=== PATIENT | male | born 1985 | race Two or more races ===

== ENCOUNTER 2021-12-26 17:49 | Emergency (ER) | payer MEDICAID, OTHER ==
[~2021-12-26] VITALS: Ht 157.5 cm; Wt 42.7 kg
[2021-12-26 18:00] VITALS: BP 123/74
[2021-12-26] MEDS ORDERED: TETANUS-DIPTH-ACEL PERTUSSIS 0.5ML SYR Tdap IM ONE (19:15)
[2021-12-26] MEDS ORDERED: KETOROLAC TROMETH 60MG/2ML VIAL IM ONE (19:45)
[2021-12-26] MEDS ORDERED: CEPH-510 PO (20:11)
== END 2021-12-26 20:19 | disposition home or self-care (01) ==
LOC: ER 17:49
DX: S01.512A Laceration without foreign body of oral cavity, initial encounter (principal); F17.210 Nicotine dependence, cigarettes, uncomplicated; F12.10 Cannabis abuse, uncomplicated; Y04.2XXA Assault by strike against or bumped into by another person, initial encounter; Y93.89 Activity, other specified; Y92.89 Other specified places as the place of occurrence of the external cause; Y99.8 Other external cause status
CPT/HCPCS: 12011; 90471; 90715; 96372; 99284; J1885

== ENCOUNTER 2022-03-21 14:37 | Emergency (ER) | payer MEDICAID ==
[~2022-03-21] VITALS: Ht 157.5 cm; Wt 60.0 kg
[~2022-03-21 14:37] MED LIST: CEPH-510 PO
[2022-03-21] MEDS ORDERED: ONDA-144 PO (17:47)
[2022-03-21 19:03] VITALS: BP 130/76
== END 2022-03-21 19:04 | disposition home or self-care (01) ==
LOC: ER 14:37
DX: U07.1 COVID-19 (principal); B34.9 Viral infection, unspecified
CPT/HCPCS: 36415; 71045; 87426

== ENCOUNTER 2024-07-17 22:15 | Emergency (ER) | payer MEDICAID ==
[~2024-07-17] VITALS: Ht 157.5 cm; Wt 48.6 kg
[~2024-07-17 22:15] MED LIST changes: +ONDA-144 PO
[2024-07-17 22:37] VITALS: BP 121/68; RESP 16
--- NOTE | 2024-07-17 23:19 | ED.PDOC ---
General HPI Comments 38-year-old male presents to ER with left-sided testicular pain x3 days. Patient reports that he started experiencing pain/swelling to left testicle three days ago. Denies any trauma/injury. He rates his current pain an 8/10 to left testicle without radiation. Denies use of medications for current symptoms. Patient presents to ER ambulatory on arrival, with steady gait, in no distress. Denies fever, body aches, chills, exposure to STD, abdominal/pelvic pain, back/flank pain, changes in urination or any further symptoms/complaints Chief Complaint: Testicle Pain Time Seen by MD: 22:23 Primary Care Provider: PRAVEEN Reviewed notes: Nurses Notes, Medications, Allergies Allergies: Coded Allergies: NO KNOWN ALLERGIES (Unverified , 12/26/21) Home Meds Active Scripts Ibuprofen (Ibuprofen) 800 Mg Tab, 1 TAB PO TID PRN, #30 TAB 0 Refills Prov:JENNIFER TIDWELL 07/18/24 Doxycycline (Monohydrate) (Doxycycline) 100 Mg Cap, 100 MG PO BID for 10 Days, #20 CAP 0 Refills Prov:JENNIFER TIDWELL 07/18/24 Ondansetron (Zofran) 4 Mg Tab, 4 MG PO Q8HPRN PRN for 3 Days, #9 TAB Prov:MICK CAROLINA MD 03/21/22 Cephalexin ( Keflex 500) 500 Mg Cap, 1 CAP PO QID for 5 Days, #20 CAP 0 Refills Prov:CADE RODAS 12/26/21 Information Source: Patient Mode of Arrival: Ambulatory Past Medical History PAST MEDICAL HISTORY: Denies Surgical History: Denies all surgeries Family History Family History: Unknown Social History Smoker: Non-Smoker Alcohol: Denies ETOH Use Drugs: Marijuana Lives In: Home Constitutional: denies: chills, diaphoresis, fatigue, fever, malaise, sweats, weakness, others EENTM: denies: blurred vision, double vision, ear bleeding, ear discharge, ear drainage, ear pain, ear ringing, eye pain, eye redness, hearing loss, mouth pain, mouth swelling, nasal discharge, nose bleeding, nose congestion, nose pain, photophobia, tearing, throat pain, throat swelling, voice changes, others Respiratory: denies: cough, hemoptysis, orthopnea, SOB at rest, shortness of b reath, SOB with excertion, stridor, wheezing, others Cardiovascular: denies: chest pain, dizzy spells, diaphoresis, Dyspnea on exertion, edema, irregular heart beat, left arm pain, lightheadedness, palpitations, PND, syncope, others Gastrointestinal: denies: abdomen distended, abdominal pain, blood streaked bowels, constipated, diarrhea, dysphagia, difficulty swallowing, hematemesis, melena, nausea, poor appetite, poor fluid intake, rectal bleeding, rectal pain, vomiting, others Genitourinary: reports: others ( STATED IN HPI) Neurological: denies: dizziness, fainting, headache, left sided numbness, left sided weakness, numbness, paresthesia, pre-existing deficit, right sided numbness, right sided weakness, seizure, speech problems, tingling, tremors, weakness, others Musculoskeletal: denies: back pain, gout, joint pain, joint swelling, muscle pain, muscle stiffness, neck pain, others Integumetry: reports: others ( STATED IN HPI) Allergic/Immunocompromised: denies: Difficulty Healing, Frequent Infections, Hives, Itching, others Hematologic/Lymphatic: denies: anemia, blood clots, easy bleeding, easy bruising, swollen glands, others Endocrine: denies: excessive hunger, excessive sweating, excessive thirst, excessive urination, flushing, intolerance to cold, intolerance to heat, unexplained weight gain, unexplained weight loss, others Psychiatric: denies: anxiety, bipolar disorder, depression, hopeless, panic disorder, schizophrenia, sleepless, suicidal, others Physical Exam General Appearance: No Apparent Distress HEENT: PERRL/EOMI Neck: Full Range of Motion, Non-Tender, Normal Respiratory: Chest Non-Tender, Lungs Clear, No Accessory Muscle Use, No Respiratory Distress, Normal Breath Sounds Cardiovascular: No Murmur, No Gallop, Regular Rate/Rhythm Breast Exam: Deferred Gastrointestinal: Non Tender, No Pulsatile Mass, Soft Genitalia: Other (TTP/MODERATE SWELLING NOTED TO LEFT TESTICLE. POSITIVE PREHN SIGN ON LEFT. POSITIVE CREMASTERIC REFLEX NOTED BILATERALLY. NO FURTHER SKIN CHANGES NOTED. REMAINDER OF GENITALIA EXAMINATION-UNREMARKABLE) Pelvic: Deferred Rectal: Deferred Extremities: Normal capillary refill, Normal range of motion Neurologic: Alert, reliability technologist II-XII nml as Tested, No Motor Deficits, Normal Affect, Normal Mood, No Sensory Deficits Cerebellar Function: Normal Reflexes: Normal Skin: Dry, Normal Color, Warm Lymphatic: No Adenopathy Was a procedure done? Was a procedure done?: No Sedation Sedation?: No Differential Diagnosis Kidney stone (Female): N/A Other Differential Diagnosis TESTICULAR ABSCESS, SEPSIS, TESTICULAR TORSION, TESTICULAR TRAUMA X-Ray, Labs, Meds, VS Vital Signs Date Time Temp Pulse Resp B/P (MAP) Pulse Ox O2 Delivery O2 Flow Rate FiO2 07/18/24 00:52 85 98 07/17/24 22:37 98.9 95 16 121/68 (85) 100 Lab Test 07/18/24 00:22 07/17/24 23:56 07/17/24 23:33 Range/Units Lactic Acid Level 0.9 0.4-2.0 mmol/L Urine Color Yellow Yellow Urine Clarity Turbid H Clear Urine pH 6.0 5.0-9.0 Urine Specific [place] 1.036 H 1.001-1.035 Urine Protein 1+ H Negative Urine Ketones 1+ H Negative Urine Blood 2+ H Negative /uL Urine Nitrite Negative Negative Urine Bilirubin Negative Negative Urine Urobilinogen 3 H Negative mg/dL Urine Leukocyte Esterase 3+ Negative /uL Urine RBC 42 0 - 3 /hpf Urine Microscopic WBC 249 H 0-3 /HPF Urine Squamous Epithelial Cells Few <5 /hpf Urine Bacteria Few H None Seen /hpf Urine Mucus Few None Seen Urine Glucose Normal Normal mg/dL White Blood Count 17.2 H 4.4-10.8 10^3/uL Red Blood Count 4.43 L 4.5-5.90 10^6/uL Hemoglobin 14.9 13.5-17.5 g/dL Hematocrit 42.9 41.0-53.0 % Mean Corpuscular Volume 96.9 80.0-100.0 fL Mean Corpuscular Hemoglobin 33.6 H 28.0-32.0 pg Mean Corpuscular Hemoglobin Concent 34.7 32.0-36.0 g/dL Red Cell Distribution Width 13.2 11.8-14.3 % Platelet Count 286 140-450 10^3/uL Mean Platelet Volume 7.8 6.9-10.8 fL Neutrophils (%) (Auto) 78.5 37.0-80.0 % Lymphocytes (%) (Auto) 9.8 L 10.0-50.0 % Monocytes (%) (Auto) 10.7 0.0-12.0 % Eosinophils (%) (Auto) 0.9 0.0-7.0 % Basophils (%) (Auto) 0.1 0.0-2.0 % Neutrophils # (Auto) 13.5 H 1.6-8.6 10 ^3/uL Lymphocytes # (Auto) 1.7 0.4-5.4 10 ^3/uL Monocytes # (Auto) 1.8 H 0-1.3 10 ^3/uL Eosinophils # (Auto) 0.1 0-0.8 10 ^3/uL Basophils # (Auto) 0 0-0.2 10 ^3/uL Nucleated Red Blood Cells 0.0 % Sodium Level 137 136-145 mmol/L Potassium Level 3.9 3.5-5.1 mmol/L Chloride Level 104 98-107 mmol/L Carbon Dioxide Level 26 20-31 mmol/L Anion Gap 7 5-15 Blood Urea Nitrogen 18 9-23 mg/dL Creatinine 0.83 0.700-1.30 mg/dL Glomerular Filtration Rate Calc 116 >90 mL/min BUN/Creatinine Ratio 21.7 H 10.0-20.0 Serum Glucose 96 74-106 mg/dL Calcium Level 9.9 8.7-10.4 mg/dL Current Medications Medications (Trade) Dose Ordered Sig/Arjun Route Start Time Stop Time Status Last Admin Ceftriaxone Sodium (Rocephin) 1,000 mg ONCE ONCE IM 07/18/24 00:15 07/18/24 00:16 DC 07/18/24 00:17 Ibuprofen (Motrin Tablet) 800 mg ONCE ONCE PO 07/18/24 00:15 07/18/24 00:16 DC 07/18/24 00:19 PATIENT: DANIELLE SINHAROSARIOT: [id number] UNIT: [id number] : 1985 LOC: ER ROOM / BED: / AGE / SEX: 38 / M ADM STATUS: REG ER SERVICE [id number] ORDERING PHYSICIAN: JENNIFER TIDWELL PROCEDURE(s): TESUS - TESTICULAR ULTRASOUND REASON: left testicular swelling/pain r/o torsion ORDER NUMBER(s): [id number], ACCESSION NUMBER(s): [id number] SCROTAL ULTRASOUND CLINICAL HISTORY: left testicular swelling/pain r/o torsion COMPARISON: None TECHNIQUE: Grayscale, color-flow and spectral Doppler ultrasound of the scrotum and its contents was performed. FINDINGS: Right testis: Measures 4.0 x 2.2 x 2.6 cm. Tiny, approximately 1 mm calcification seen in the right testicular parenchyma. No other discrete, sizable parenchymal lesions identified. Normal blood flow on spectral analysis. Left testis: Measures 3.5 x 2.1 x 2.7 cm. No discrete, sizable parenchymal le sions identified. Normal blood flow on spectral analysis. Epididymides: Left epididymis appears enlarged and hypervascular. Hydrocele: Small left hydrocele noted. Other: Negative. IMPRESSION: Enlarged, hypervascular left epididymis which can be seen with epididymitis. Small left hydrocele may be reactive. No sonographic evidence of testicular torsion at this time. ATED BY: HOWIE KILLIAN MD DICTATED DATE/TIME: 07/17/242356 SIGNED BY: HOWIE KILLIAN MD SIGNED DATE/TIME: 07/17/242356 CC: CBC REVIEWED-WBC 17.2 BMP REVIEWED WITHOUT ANY SIGNIFICANT ABNORMALITIES LACTIC ACID REVIEWED - NORMAL URINALYSIS REVIEWED-URINE LEUKOCYTE ESTERASE 2+, URINE BLOOD 2+, URINE NITRITES NEGATIVE TESTICULAR ULTRASOUND REVIEWED ROCEPHIN 1 G IM ORDERED IBUPROFEN 800 MG P.O. ORDERED ADVISED ON REST/NO STRENUOUS ACTIVITY AND ELEVATION SAFE SEX PRACTICES DISCUSSED AND ADVISED AND WAS ADVISED TO REFRAIN FROM SEXUAL INTERCOURSE UNTIL SYMPTOMS COMPLETELY RESOLVE PATIENT HAD IMPROVEMENT IN SYMPTOMS, VITALS STABLE AND NONTOXIC APPEARING/IN NO DISTRESS PRIOR TO DISCHARGE PATIENT PROVIDED COPY OF TESTICULAR ULTRASOUND REPORT ADVISED TO FOLLOW UP WITH PCP AND UROLOGY IN 1-2 DAYS PATIENT VERBALIZED UNDERSTANDING AND AGREEABLE WITH CURRENT PLAN OF CARE ADVISED TO RETURN TO ER IMMEDIATELY IF SYMPTOMS WORSEN Images Reviewed?: Images reviewed and evaluated by me Time of 1ST Reevaluation: 23:12 Reevaluation 1ST: N/A Patient Education/Counseling: Diagnosis, Treatment, Prognosis, Need For Follow Up Family Education/Counseling: No Family Present Departure 1 Departure Time of Disposition: 00:02 Impression: Primary Impression: Epididymitis, left Additional Impressions: UTI (urinary tract infection) Qualified Codes: N30.01 - Acute cystitis with hematuria Hydrocele Qualified Codes: N43.3 - Hydrocele, unspecified Disposition: HOME / SELF CARE / HOMELESS Condition: Stable e-Prescriptions Ibuprofen (Ibuprofen) 800 Mg Tab 1 TAB PO TID PRN, #30 TAB 0 Refills Prov: JENNIEFR TIDWELL 07/18/24 Doxycycline (Monohydrate) (Doxycycline) 100 Mg Cap 100 MG PO BID for 10 Days, #20 CAP 0 Refills Prov: JENNIFER TIDWELL 07/18/24 Discharged With: Self Critical Care Note Critical Care Time?: No Stability Stability form required: No Heart Score Heart Score: Heart Score Response (Comments) Value History N/A 0 EKG N/A 0 Age N/A 0 Risk Factors N/A 0 Troponin N/A 0 Total 0 JENNIFER TIDWELL Jul 17, 2024 23:19
[2024-07-17 23:42] LABS: Basophils # (auto) 0 10 ^3/uL (0-0.2); Basophils % (auto) 0.1 % (0.0-2.0); Eosinophils # (auto) 0.1 10 ^3/uL (0-0.8); Eosinophils % (auto) 0.9 % (0.0-7.0); Hematocrit 42.9 % (41.0-53.0); Hemoglobin 14.9 g/dL (13.5-17.5); Lymphocytes # (auto) 1.7 10 ^3/uL (0.4-5.4); Lymphocytes % (auto) 9.8 % (10.0-50.0); Mean Corpuscular Hemoglobin 33.6 pg (28.0-32.0); Mean Corpuscular Hgb Conc. 34.7 g/dL (32.0-36.0); Mean Corpuscular Volume 96.9 fL (80.0-100.0); Monocytes # (auto) 1.8 10 ^3/uL (0-1.3); Monocytes % (auto) 10.7 % (0.0-12.0); Neutrophils # (auto) 13.5 10 ^3/uL (1.6-8.6); Neutrophils % (auto) 78.5 % (37.0-80.0); Platelet Count (auto) 286 10^3/uL (140-450); Red Blood Cells 4.43 10^6/uL (4.5-5.90); Red Cell Distribution Width 13.2 % (11.8-14.3); White Blood Cell 17.2 10^3/uL (4.4-10.8)
--- NOTE | 2024-07-17 23:59 | DVH ---
SCROTAL ULTRASOUND CLINICAL HISTORY: left testicular swelling/pain r/o torsion COMPARISON: None TECHNIQUE: Grayscale, color-flow and spectral Doppler ultrasound of the scrotum and its contents was performed. FINDINGS: Right testis: Measures 4.0 x 2.2 x 2.6 cm. Tiny, approximately 1 mm calcification seen in the right t esticular parenchyma. No other discrete, sizable parenchymal lesions identified. Normal blood flow on spectral analysis. Left testis: Measures 3.5 x 2.1 x 2.7 cm. No discrete, sizable parenchymal lesions identified. Normal blood flow on spectral analysis. Epididymides: Left epididymis appears enlarged and hypervascular. Hydrocele: Small left hydrocele noted. Other: Negative. IMPRESSION: Enlarged, hypervascular left epididymis which can be seen with epididymitis. Small left hydrocele ma y be reactive. No sonographic evidence of testicular torsion at this time.
[2024-07-18 00:02] LABS: Chloride 104 mmol/L (98-107); Potassium 3.9 mmol/L (3.5-5.1); Sodium 137 mmol/L (136-145)
[2024-07-18 00:03] LABS: Anion Gap 7 (5-15); Calcium 9.9 mg/dL (8.7-10.4); Carbon Dioxide 26 mmol/L (20-31)
[2024-07-18 00:08] LABS: BUN/Creatinine Ratio 21.7 (10.0-20.0); Blood Urea Nitrogen 18 mg/dL (9-23); Glucose 96 mg/dL (74-106)
[2024-07-18] MEDS ORDERED: IBUP-1456 PO (00:09)
[2024-07-18] MEDS ORDERED: DOXY100C79 PO (00:09)
[2024-07-18 00:12] LABS: Urine Bacteria FEW /hpf (None Seen); Urine Blood 2+ /uL (Negative); Urine Clarity Turbid (Clear); Urine Color Yellow (Yellow); Urine Mucus FEW (None Seen); Urine Protein, UAD 1+ (Negative); Urine Specific Gravity 1.036 (1.001-1.035); Urine Squamous Epithelial Cell FEW /hpf (<5); Urine Urobilinogen 3 mg/dL (Negative); Urine WBC 249 /HPF (0-3)
[2024-07-18] MEDS: cefTRIAXone SOD 1,000 MG VL IM ONE (00:17)
[2024-07-18] MEDS: IBUPROFEN 800 MG TAB PO ONE (00:19)
[2024-07-18 00:52] VITALS: PULSE 85; O2SAT 98
== END 2024-07-18 01:13 | disposition home or self-care (01) ==
LOC: ER 22:15
DX: N45.1 Epididymitis (principal); N43.3 Hydrocele, unspecified; N39.0 Urinary tract infection, site not specified; Z79.899 Other long term (current) drug therapy
CPT/HCPCS: 36415; 76870; 80048; 81001; 83605; 85025; 87040; 96372; 99285; J0696